=== PATIENT | male | born 1975 | race Caucasian/White ===

== ENCOUNTER 2024-11-19 19:41 | Emergency (ER) | payer MEDICAID, SELFPAY ==
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
[2024-11-19 20:43] VITALS: PULSE 114; RESP 20; O2SAT 98; BMI 27.6
[2024-11-19 21:20] VITALS: BP 159/94; PULSE 92; RESP 16; TEMP 37; O2SAT 98
[2024-11-19 21:59] LABS: Collection Type, Urine Voided; RBC,Urine 0 /hpf (0-3); WBC,Urine 0 /hpf (0-5)
[2024-11-19 21:59] LABS: Basophils # (Auto) 0.1 Thou/mm3 (0.0-0.2); Basophils % (Auto) 1 % (0-2.5); Eosinophils # (Auto) 0.5 Thou/mm3 (0.0-0.5); Eosinophils % (Auto) 4 % (0-10); Hematocrit 29.8 % (41.0-53.0); Hemoglobin 10.1 g/dL (13.5-16.0); Immature Granulocytes Auto 0.06 Thou/mm3 (0.00-0.00); Lymphocytes # (Auto) 1.5 Thou/mm3 (1.0-4.8); Lymphocytes % (Auto) 14 % (10-50); Mean Corpuscular HGB Conc 33.9 g/dl (31.0-37.0); Mean Corpuscular Hemoglobin 31.4 pg (25.0-35.0); Mean Corpuscular Volume 93 fL (80-100); Monocytes # (Auto) 1.8 Thou/mm3 (0.0-0.8); Monocytes % (Auto) 16 % (0-12); Neutrophils # (Auto) 7.3 Thou/mm3 (1.8-7.7); Neutrophils % (Auto) 65 % (37-80); Nucleated Red Blood Cell # 0.00 Thou/mm3 (0.00-0.00); Nucleated Red Blood Cell % 0 /100 WBC (0); Platelet Count 399 Thou/mm3 (140-440); RDW Standard Deviation 42.4 fL (35.1-43.9); Red Blood Count 3.22 Miln/mm3 (4.50-5.90); White Blood Count 11.2 Thou/mm3 (3.8-10.6)
[2024-11-19] MEDS: MORPHINE SULF INJ 10 MG/ML VIAL 4 MG IVP (22:10)
[2024-11-19 22:20] LABS: Amphetamine/Methamp Scrn,U Positive (Negative); Barbiturate Screen,Urine Negative (Negative); Benzodiazepines Screen,Urine Negative (Negative); Benzoylecgonine Screen, Ur Negative (Negative); Fentanyl Screen,Urine Negative (Negative); Opiate Screen,Urine Positive (Negative); THC Screen,Urine Positive (Negative)
[2024-11-19 22:20] LABS: Alanine Aminotransferase 27 U/L (10-49); Albumin, Serum 3.5 gm/dL (3.5-5.0); Albumin/Globulin Ratio 1.1 (1.2-2.2); Alcohol, Blood Medical < 3.0 mg/dL (0-10.0); Alkaline Phosphatase 77 U/L (46-116); Anion Gap 9 (7-16); Aspartate Amino Transferase 34 U/L (0-34); BUN/Creatinine Ratio 15 Ratio (12-20); Bilirubin,Total 0.5 mg/dL (0.3-1.2); Blood Urea Nitrogen 12 mg/dL (9-23); Calcium 8.8 mg/dL (8.3-10.6); Calcium (Corrected) 9.2 mg/dL (8.5-10.1); Carbon Dioxide 25.5 mMol/L (20.0-31.0); Chloride 102 mMol/L (98-107); Creatinine (Component) 0.8 mg/dL (0.6-1.3); Estimated Creatinine Clearance 129.9 mL/min (>60); Globulin 3.2 gm/dL (2.3-3.5); Glucose 108 mg/dL (74-106); Osmolality,Calculated 272 (275-295); Potassium 4.5 mMol/L (3.4-5.1); Sodium 136 mMol/L (136-145); Total Protein 6.7 gm/dL (5.7-8.2); eGFR > 60 See Note
[2024-11-19 22:24] LABS: Bacteria,Urine Rare; Bilirubin,Urine Negative (Negative); Blood,Urine Negative (Negative); Clarity,Urine Clear (Clear/Hazy); Color,Urine Yellow (Lt Yel-Yel); Culture Indicated,Urine Not Indicated; Glucose, Urine Negative (Negative); Ketones,Urine Negative (Negative); Leukocyte Esterase,Urine Negative (Negative); Nitrite,Urine Negative (Negative); PH,Urine 6.0 (5.0-7.0); Protein,Urine Trace (Neg - Trace); Specific Gravity,Urine 1.036 (1.001-1.035); Squamous Epithelial Cell,Urine < 1 /hpf (0-5); Urobilinogen,Urine 4.0 mg/dL (0.0-1.0)
[2024-11-19 23:11] VITALS: BP 151/90; PULSE 94; RESP 16; TEMP 37; O2SAT 100
== END 2024-11-19 23:36 | disposition home or self-care (01) ==
PROVIDERS: Physician Assistant Medical; Emergency Provider Emergency Medicine
DX: R51.9 Headache, unspecified (principal); F15.10 Other stimulant abuse, uncomplicated
CPT/HCPCS: 36415; 70470; 80053; 80307; 80320; 81001; 85025; 96374; 99284; A4649; J2270; Q9967; G0480

== ENCOUNTER 2024-12-31 09:02 | Emergency (ER) | payer MEDICAID, SELFPAY ==
[2024-12-31 09:03] VITALS: BP 148/82; PULSE 86; RESP 24; TEMP 36.6; O2SAT 96
--- NOTE | 2024-12-31 09:12 | EKG_ITS ---
[facility] Test Date: 2024-12-31 Pat Name: LUISA LANDAVERDE Department: Room: - Gender: Male Help Desk Support Specialist: : 1975 Requested By: ED Temporary Provider Order Number: [id number] Reading MD: ED Temporary Provider Measurements Intervals [place] Rate: 91 P: 23 HI: 176 QRS: 50 QRSD: 106 T: 9 QT: 345 QTc: 425 Interpretive Statements SINUS RHYTHM NONSPECIFIC T-WAVE ABNORMALITY No previous ECG available for comparison /store/S0/[id number]/ecg/[id number].pdf
[2024-12-31 09:16] VITALS: PULSE 78; RESP 20; O2SAT 98
[2024-12-31 09:29] VITALS: BMI 26.3
--- NOTE | 2024-12-31 09:32 | XR_ITS ---
Exam: Chest 1 view, AP Date and time of exam: 12/31/2024, 9:41 AM INDICATION: Chest pain. Comparison: Findings: Normal heart size. No mediastinal adenopathy. No acute fracture No pulmonary edema or pneumonia. Impression: No active disease.
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
[2024-12-31 10:19] LABS: Basophils # (Auto) 0.0 Thou/mm3 (0.0-0.2); Basophils % (Auto) 0 % (0-2.5); Eosinophils # (Auto) 0.1 Thou/mm3 (0.0-0.5); Eosinophils % (Auto) 1 % (0-10); Hematocrit 39.4 % (41.0-53.0); Hemoglobin 12.9 g/dL (13.5-16.0); Immature Granulocytes Auto 0.03 Thou/mm3 (0.00-0.00); Lymphocytes # (Auto) 1.3 Thou/mm3 (1.0-4.8); Lymphocytes % (Auto) 11 % (10-50); Mean Corpuscular HGB Conc 32.7 g/dl (31.0-37.0); Mean Corpuscular Hemoglobin 30.2 pg (25.0-35.0); Mean Corpuscular Volume 92 fL (80-100); Monocytes # (Auto) 1.3 Thou/mm3 (0.0-0.8); Monocytes % (Auto) 11 % (0-12); Neutrophils # (Auto) 9.1 Thou/mm3 (1.8-7.7); Neutrophils % (Auto) 76 % (37-80); Nucleated Red Blood Cell # 0.00 Thou/mm3 (0.00-0.00); Nucleated Red Blood Cell % 0 /100 WBC (0); RDW Standard Deviation 44.0 fL (35.1-43.9); Red Blood Count 4.27 Miln/mm3 (4.50-5.90); White Blood Count 11.9 Thou/mm3 (3.8-10.6)
--- NOTE | 2024-12-31 10:34 | PC.NURSE ---
I WALKED BY PATIENTS ROOM AND OVERHEARD HIM YELLING AT HIS PRIMARY NURSE JOSEFINA WHO HAD ATTEMPTING IV INSERTION X1. PT YELLING AT NURSE STATING I BRIANKING TOLD YOU I HAVE NO FUCKING VEINS IN MY ARMS, YOU NEED TO PUT IT IN MY NECK, IM NOT GOING TO HAVE YOU GUYS KEEP STICKING ME . PRIMARY NURSE ATTEMPTED IVL ONCE PRIOR TO PT GETTING UPSET. I INFORMED PT THAT HE DOES NOT NEED TO BE CURSING AT US THAT WE ARE TRYING TO HELP HIM. I ALSO INFORMED HIM THAT THE NECK WILL BE OUR LAST RESORT, PERIPHERAL IV IS RECOMMENDED RATHER THEN THE NECK. PT THEN TOLD ME GET OUT OF HERE YOU ARE NOT EVEN MY FUCKING NURSE . I INFORMED PT THAT I AM THE CHARGE NURSE OF THIS DEPARTMENT AND I WONT HAVE HIM YELLING AT THE STAFF WE ARE JUST TRYING TO HELP HIM. PT THEN STATES THEN GET ME THE FUCK OUT OF HER THEN . WENT IN TO SPEAK WITH PT. PT SINGED AMA FORM.
[2024-12-31 10:50] LABS: Alanine Aminotransferase 7 U/L (10-49); Albumin, Serum 4.2 gm/dL (3.5-5.0); Albumin/Globulin Ratio 1.3 (1.2-2.2); Alkaline Phosphatase 113 U/L (46-116); Anion Gap 6 (7-16); Aspartate Amino Transferase 23 U/L (0-34); BUN/Creatinine Ratio 8 Ratio (12-20); Bilirubin,Total 0.2 mg/dL (0.3-1.2); Blood Urea Nitrogen 6 mg/dL (9-23); Calcium 10.1 mg/dL (8.3-10.6); Calcium (Corrected) 10.1 mg/dL (8.5-10.1); Carbon Dioxide 24.6 mMol/L (20.0-31.0); Chloride 107 mMol/L (98-107); Creatinine (Component) 0.8 mg/dL (0.6-1.3); Estimated Creatinine Clearance 129.9 mL/min (>60); Globulin 3.3 gm/dL (2.3-3.5); Glucose 73 mg/dL (74-106); Lipase 36 U/L (12-53); Osmolality,Calculated 272 (275-295); Potassium 3.8 mMol/L (3.4-5.1); Sodium 138 mMol/L (136-145); Total Protein 7.5 gm/dL (5.7-8.2); Troponin I < 0.020 ng/mL (0.0-0.045); eGFR > 60 See Note
[2024-12-31 11:57] LABS: Platelet Count 257 Thou/mm3 (140-440)
== END 2024-12-31 11:18 | disposition left against medical advice (07) ==
PROVIDERS: Emergency Provider Emergency Medicine
DX: R07.9 Chest pain, unspecified (principal); Z53.29 Procedure and treatment not carried out because of patient's decision for other reasons
CPT/HCPCS: 36415; 71045; 80053; 80307; 81001; 83690; 84484; 85025; 93005; 99283